=== PATIENT | male | born 1960 | race African-American/Black ===

== ENCOUNTER 2022-01-04 21:10 | Emergency (ER) | payer OTHER, SELFPAY ==
[2022-01-04] VITALS (28 sets, daily range): BP systolic 105–164; BP diastolic 53–149; PULSE 74–81; RESP 11–20; TEMP 31.7–35.1; O2SAT 100
--- NOTE | ~2022-01-04 | CT_ITS ---
EXAMINATION: CT cervical spine wo con DATE: 01/04/2022 22:46 INDICATION: Altered mental status TECHNIQUE: Computed tomography (CT) of the cervical spine was performed without intravenous contrast. Automated exposure control and iterative reconstruction technique were employed. The dose-length pro duct was 265.85 mGy-cm. COMPARISON: None FINDINGS: Vertebral Body Alignment: Grade 1 anterolisthesis at C3-4. Craniocervical and atlantoaxial alignment: Moderate degenerative change. Alignment intact. Osseous structures/fracture: No evidence of a lytic or blastic process in the visualized spine. Obli quely oriented fracture through the bilateral C6 lamina, extending minimally into the base of the C6 spinous process. Cervical soft tissues: The paraspinal soft tissues planes are maintained. Degenerative changes: Multilevel severe degenerative disc disease and bilateral neural foraminal narr owing. Congenitally narrow appearing central canal. IMPRESSION: C6 posterior element fracture involving the bilateral lamina and base of the C6 spinous process. Reviewed, dictated and finalized at [facility].
--- NOTE | ~2022-01-04 | CT_ITS ---
EXAMINATION: CT brain wo con DATE: 01/04/2022 22:43 INDICATION: Altered mental status . TECHNIQUE: Computed tomography (CT) of the head was performed without intravenous contrast. The mA wa s adjusted according to patient size. Iterative reconstruction technique was employed. The dose-lengt h product was 605.33 mGy-cm. COMPARISON: None FINDINGS: No acute intracranial hemorrhage or extra-axial fluid collection. No hydrocephalus, mass, or herniation. No acute ischemic infarct. Unremarkable dural venous sinus attenuation. No acute osseous abnormality. The aerated spaces are clear. Moderate atrophy. Mild chronic white matter change. Atherosclerotic intracranial calcifications. Bila teral basal ganglia calcification. IMPRESSION: No acute intracranial process. Reviewed, dictated and finalized at location [facility].
--- NOTE | ~2022-01-04 | CT_ITS ---
EXAMINATION: CT chst ab diya beckford w DATE: 01/04/2022 22:56 INDICATION: Ground-level fall. Patient found and color for unknown amount of time. Altered mental sta te. TECHNIQUE: Computed tomography (CT) of the chest, abdomen, and pelvis was performed with 100 CC Omnip aque 350 intravenous contrast. Automated exposure control and iterative reconstruction technique were employed. Exam dose: 349.48 mGy-cm total exam DLP. COMPARISON: None FINDINGS: CHEST CT: Normal heart size. Coronary artery calcifications. No pericardial or pleural effusion. No thoracic ao rtic aneurysm or dissection. No hilar or mediastinal mass lesion or lymphadenopathy. Mild emphysematous changes. No pulmonary infiltrate or consolidation or pulmonary mass lesion is dete cted. ABDOMEN/PELVIS CT: 9.7 x 14 Millimeters hepatic cyst. Hepatic steatosis. The gallbladder appears normal. No, wall thicke argelia or pericholecystic fluid or fat stranding. No bile duct or pancreatic duct dilatation. No pancr eatic mass lesion or calcification. Normal splenic size. Normal morphology of the adrenal glands. Occasional bilateral renal cysts, the largest situated on the left, measuring about 9.5 mm. There is atherosclerotic calcification but normal caliber of the abdominal aorta. No intraperitoneal or retrop eritoneal or pelvic mass lesion or adenopathy or ascites. There is a Hoover catheter in the urinary bladder. No evidence of appendicitis. No bowel obstruction, bowel wall thickening, pneumatosis or intraperiton eal free air. Prominent degenerative disc disease at C5-6 and C6-7. Degenerative changes apophyseal joints with associated grade 1 anterolisthesis at L3-4. Mild degenerative disc disease with mild retrolisthesis at L4-5. Severe degenerative disc disease at L5-S1. No suspicious osteolytic or osteoblastic lesions are noted. IMPRESSION: Mild emphysema Hepatic steatosis Hepatic cysts Bilateral renal cysts Reviewed, dictated and finalized at [facility]. Reviewed, dictated and finalized at location [facility].
--- NOTE | 2022-01-04 21:19 | ECG_ITS ---
Measurements Intervals [place] Rate: 78 P: 87 ND: 126 QRS: 57 QRSD: 90 T: 81 QT: 407 QTc: 465 Interpretive Statements SINUS RHYTHM DELAYED PRECORDIAL R/S TRANSITION ST ELEVATION IN ANTERIOR LEADS- PROBABLY EARLY REPOLARIZATION ABNORMALITY BASELINE ARTIFACT- I, II, III, AVR, AVL, AVF, V1-V6 BORDERLINE ECG NO PREVIOUS ECG AVAILABLE FOR COMPARISON Electronically Signed On 01-04-2022 21:56:40 CDT by Junior Garduno D.O.
--- NOTE | 2022-01-04 21:21 | ED.AMS ---
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 EMS reports that is unknown when the patient went into the auto parts delivery driver. He was alert per EMS but disoriented. Patient complained of bilateral hand pain with rewarming. EMS notes the patient moved all 4 extremities and followed simple commands. There is a glucose reported as 80. Perigpheral temperature was reported as 96 ?F. Related Data Allergies Allergy/AdvReac Type Severity Reaction Status Date / Time No Known Allergies Allergy Verified 01/04/22 21:21 Review of Systems Review of Systems: Unable to obtain Review of systems due to patient's altered mental status Exam Narrative: GENERAL: Well-developed, thin, alert following some commands; patient smells of alcohol HEAD: Normocephalic, superficial abrasions noted over the anterior chin EYES: Pupils 2 mm and reactive bilaterally,PERRLA and EOMI. ENT: Nares clear, no rhinorrhea or epistaxis. Mucous membranes dry. Oropharynx without tonsillar hypertrophy exudate or other lesions. NECK: No midline tenderness or crepitus to palpation, No adenopathy or masses. No carotid bruits or JVD patient arrives in c-collar CHEST: Clear to auscultation. No respiratory distress. No wheezes rales or rhonchi HEART: Regular rate and rhythm. No murmur heard. Normal peripheral pulses. ABDOMEN: Soft, nontender, nondistended, normal active bowel sounds. Patient incontinent of stool without blood EXTREMITIES: Normal range of motion. No edema. BACK: Step-off, tenderness or crepitus to palpation SKIN: Warm, dry, no rash. NEURO: Patient has decreased strength in the lower extremities with flexion and extension at the hip. Strength in the arms intact, Alert and oriented to self, no noted ataxia, CN 2-12 intact PSYCH: Normal mood and affect. Course Course Emergency Course: 00:14 - CT demonstrates a C6 spinous process fracture without other significant findings. On reevaluation, the patient is now alert and oriented and answers questions appropriately. He states he has no sensation in the legs and cannot move them. On examination he does appear weak in the left leg greater than the right. Rectal tone is present but diminished with decreased sensation around the rectum. Discussed patient with spine surgeon chief, Dr. Perez at [facility] who accepts transfer for evaluation. Discussed patient with ED physician, Dr. Villaseñor who accepts transfer. Will transfer to [facility] as a trauma. Chemistries demonstrated anion gap with lactic of 2.8. UA somewhat consistent with UTI. 01:38 - Pressure now decreased to 60s systolic with heart rate in the high 60s. We will start Levophed. FAST is not concerning for free intra-abdominal fluid or pericardial effusion. The patient may be now shunting circulation as he rewarms. Vital Signs Vital signs: Vital Signs Pulse Rate 78 01/04/22 21:13 Respiratory Rate 16 01/04/22 21:13 Blood Pressure 140/109 H 01/04/22 21:13 Pulse Oximetry 100 01/04/22 21:13 Temperature 96.6 F L 01/05/22 02:08 Pulse Rate 71 01/05/22 01:46 Respiratory Rate 18 01/05/22 01:46 Blood Pressure 143/88 H 01/05/22 02:08 Pulse Oximetry 100 01/05/22 01:46 [facility]: [facility] Transfer rationale: Cervical spine fracture with neurologic deficits concerning for spinal cord injury Accepting physician: Dr Perez (Spine surgery) and Dr. Villaseñor (ED). MDM - Altered Mental Status MDM Narrative Medical decision making narrative: Plan: Labs, imaging, active rewarming, ECG, reassess Differential Diagnosis Differential diagnosis: Likely alcoholic intoxication, alter
[2022-01-04 21:36] LABS: Glucose Point of Care 86 mg/dl (65-105)
[2022-01-04] MEDS: SODIUM CHLORIDE 0.9% IV 1,000 ML 999 ML IV CONT (21:51)
[2022-01-04 22:04] LABS: Basophils Absolute Auto 0.1 K/mm3 (0.0-0.1); Basophils Percent Auto 1.4 % (0.2-1.2); Eosinophils Absolute Auto 0.1 K/mm3 (0-0.3); Eosinophils Percent Auto 1.1 % (0-4.4); Hematocrit 50.5 % (42.0-52.0); Hemoglobin 16.7 g/dL (14.0-18.0); Immature Granulocyte Absolute 0.04 K/mm3 (0.00-0.031); Immature Granulocyte Percent A 0.5 % (0-0.5); Lymphocytes Absolute Auto 2.83 K/mm3 (0.9-3.2); Lymphocytes Percent Auto 38.4 % (18.3-44.2); Mean Corpuscular HGB Conc 33.1 g/dl (32-36); Mean Corpuscular Hemoglobin 32.1 pg (26-34); Mean Corpuscular Volume 96.9 fl (80-100); Mean Platelet Volume 10.4 fl (7.4-10.4); Monocytes Absolute Auto 0.4 K/mm3 (0.1-0.6); Monocytes Percent Auto 5.2 % (2.6-8.5); Neutrophils Absolute Auto 3.9 K/mm3 (1.3-6.7); Neutrophils Percent Auto 53.4 % (45.5-73.1); Platelet Count Result 162 k/mm3 (150-375); Red Blood Count 5.21 M/mm3 (4.6-6.20); White Blood Count 7.4 K/mm3 (4.5-10.0)
[2022-01-04 22:05] LABS: Appearance Urine Clear (Clear); Bilirubin Urine Negative (Negative); Blood Urine 2+ (Negative); Color Urine Yellow (Yellow); Glucose Urine UA Negative (Negative); Ketones Urine Negative (Negative); Leukocyte Esterase Ur 1+ LEU/UL (Negative); Nitrate Urine Positive (Negative); Protein Urine Negative (Negative); Urobilinogen Urine 0.2 mg/dL (<2.0); pH Urine 5.5 (5.0-9.0)
[2022-01-04 22:08] LABS: RBC Urine 0-2 /hpf (0-2)
[2022-01-04 22:10] LABS: Add Urine Microscopic? YES
[2022-01-04 22:10] LABS: Fractional Inspired Oxygen 21 %; HCO3 VBG 17.3 mEq/l (24.0-30.0); PO2 VBG 121.5 mmHg (35.0-45.0); pH VBG 7.391 (7.300-7.400)
[2022-01-04 22:13] LABS: Device ROOM AIR; PCO2 VBG 29.1 mmHg (42.0-48.0)
[2022-01-04 22:15] LABS: Alanine Aminotransferase 22 U/L (6-50); Alkaline Phosphatase 77 U/L (38-126); Anion Gap 21 mmol/L (8-16); Aspartate Amino Transferase 144 U/L (17-59); Bilirubin,Total 0.7 mg/dL (0.2-1.3); Blood Urea Nitrogen 4 mg/dL (9-20); Calcium 9.4 mg/dL (8.4-10.2); Carbon Dioxide 17 mmol/L (22-30); Chloride 97 mmol/L (98-107); Creatine Kinase 838 U/L (55-170); Estimated CRCL calculation 70 ml/min; Estimated Glomerular Filt Rate > 60; Glucose 82 mg/dL (65-110); Potassium 4.8 mmol/L (3.4-5.0); Sodium 135 mmol/L (137-145)
[2022-01-04 22:25] LABS: Ethanol 219 mg/dL (<10)
[2022-01-04 22:25] LABS: Amphetamine Screen Urine Negative (Negative); Barbiturate Screen Urine Negative (Negative); Benzodiazepines Screen Urine Negative (Negative); Cannabinoid Screen Urine Negative (Negative); Cocaine Screen Urine Negative (Negative); Methadone Screen Urine Negative (Negative); Opiate Screen Urine Negative (Negative); Phencyclidine Screen Urine Negative (Negative)
[2022-01-04 22:32] LABS: Troponin I < 0.012 ng/mL (0.000-0.034)
[2022-01-04 22:48] LABS: Lactic Acid Reflex 2.8 mmol/L (0.7-2.0)
--- NOTE | 2022-01-04 23:42 | PC.NURSE ---
Bertha([facility] [place]) [phone]
--- NOTE | 2022-01-04 23:42 | PC.NURSE ---
Notified mom per pt request that pt present in ED
[2022-01-05] VITALS (25 sets, daily range): BP systolic 61–143; BP diastolic 50–88; PULSE 67–81; RESP 13–22; TEMP 35.1–36.1; O2SAT 98–100
[2022-01-05] MEDS: SODIUM CHLORIDE 0.9% IV 1,000 ML 999 ML IV CONT (01:27)
--- NOTE | 2022-01-05 01:27 | PC.NURSE ---
Fluids hung at this time due to hypotension and verbal orders from Dr Mary
[2022-01-05 01:34] LABS: Reflex Lactic Acid Yes or No Add Lactic
[2022-01-05] MEDS: NOREPINEPHRINE 8 MG/D5W 250 ML 8 MG/250 ML BAG 9.4 MG (01:46)
== END 2022-01-05 02:18 | disposition short-term general hospital (02) ==
PROVIDERS: Emergency Provider Preventive Medicine Aerospace Medicine
DX: R41.82 Altered mental status, unspecified (principal); T68.XXXA Hypothermia, initial encounter; F10.120 Alcohol abuse with intoxication, uncomplicated; S12.500A Unspecified displaced fracture of sixth cervical vertebra, initial encounter for closed fracture; X58.XXXA Exposure to other specified factors, initial encounter; R20.8 Other disturbances of skin sensation
CPT/HCPCS: 36415; 70450; 71260; 72125; 72129; 72132; 74177; 80053; 80307; 81001; 82550; 82803; 82948; 83605; 84484; 85025; 87040; 93005; 96361; 96365; 96375; 99285; J0696; J3370; J7030; L0140; Q9967